=== PATIENT | female | born 1945 | race Caucasian/White ===

== ENCOUNTER 2024-05-06 10:42 | Inpatient (IN) ==
[2024-05-06] MEDS: ONDANSETRON INJ 2 MG/ML 2 ML VIAL IV STA (11:08)
[2024-05-06] MEDS: SODIUM CHLORIDE 0.9% 1,000 ML IV SCH (11:08)
--- NOTE | 2024-05-06 11:08 | Emergency Department Note ---
Impression & Plan Diverticulitis of intestine with perforation and abscess, Atrial fibrillation with RVR, Abdominal pain ED Provider Note NAME: ESTEBAN BARRIGA AGE: 78 SEX: F : 1945 ARRIVES VIA: Walk-In INFORMANT: Patient ED PROVIDER(S): Burak Erickson DO CHIEF COMPLAINT: hypotension and ABD pain HPI: Patient is a 78-year-old female with a past medical history of permanent A- fib, dilated cardiomyopathy and history of cardioversion who presents to the ER for low blood pressure referred in by her cardiology's office. At the end of March cardiology switched her to digoxin. She has been taking her blood thinner. She notes that on Friday she started with nausea, vomiting, and diarrhea. She is unable to keep anything down. Majority of the symptoms stopped by the end of Friday but she still had the nausea. Nausea has continued up until yesterday. She has not been eating or drinking much. She now just has discomfort in the left lower quadrant. She is unable to take her meds which included the digoxin. No dysuria, urgency, or frequency. No other exacerbating or remitting factors. ADDITIONAL HISTORY OBTAINED: Per HPI Chronic Medical/Social Conditions Affecting Care: Per HPI PAST MEDICAL HISTORY:See Below PAST SURGICAL HISTORY:See Below FAMILY HISTORY:See Below SOCIAL HISTORY:See Below HOME MEDICATIONS:See Below ALLERGIES:See Below VITALS:See Below PHYSICAL EXAMINATION: GENERAL: Sitting up in bed, alert, well appearing, well nourished, no distress, non-toxic EYE EXAM: normal conjunctiva. OROPHARYNX: mucous membranes are dry NECK: supple, no nuchal rigidity, no adenopathy, non-tender LUNGS: Clear to auscultation. Normal chest wall mechanics HEART: no murmurs, S1 normal and S2 normal ABDOMEN: abdomen soft, non-tender, normo-active bowel sounds, no masses, no rebound or guarding. UPPER EXTREMITIES: upper extremities are grossly normal. LOWER EXTREMITIES: No pitting edema. NEURO EXAM: Normal sensorium, cranial nerves II-XII grossly intact, normal speech, no gross weakness of arms, no gross weakness of legs. MEDICAL DECISION MAKING: Patient is a 78-year-old female who presents ER for the above-stated complaint. IV was established blood work was obtained. Labs show leukocytosis of 14,000. No significant anemia. BMP with a creatinine 1.2. LFTs bilirubin and mag were unremarkable. Troponin was negative. Lipase normal. Patient was given IV fluids. Heart rate trended down from 150 to 120s with 2L NSS. Systolic blood pressures improved. Patient was given IV antibiotics including Rocephin and Flagyl. She was updated bedside. Discussed with general surgery and the hospitalist admitted for further workup. Consults/Care Managements Discussions: Per [facility] Triage Nursing notes reviewed. Limited review of prior medical records performed Vital Signs: reviewed and remarkable for hypotension, tachycardic Differential diagnosis: Differential diagnoses includes but is not limited to gastritis, peptic ulcer disease, GERD, gallbladder disease, pancreatitis, small bowel obstruction, appendicitis, diverticulitis, hernia, urinary tract infection, torsion, perforation, trauma, infectious. ER treatment provided: See below Diagnostics interpreted by me include EKG and cardiac monitoring as listed below: -Cardiac Monitoring: An order was placed for continuous cardiac monitoring. The monitor shows a rate of 150 with A-fib rhythm. -ECG: A-fib RVR rate of 127 Normal axis No PVCs QTc 441 -Laboratory studies:Interpreted by me as stated above in MDM and shown below. Imaging studies: Xrays: As interpreted by me: Portable AP upright 1 view of the chest shows no infiltrate CTs show: CT abdomen pelvis shows perforated diverticulitis. Procedures:none Critical Care: None Past Med/Surg History Problem List (Updated 05/06/24 @ 15:21 by Burak Erickson DO) Abdominal pain (Acute) Atrial fibrillation with RVR (Acute) Diverticulitis of intestine with perforation and abscess (Acute) Permanent atrial fibrillation Mitral regurgitation Heart failure with mid-range ejection fraction (HFmEF) History of cardioversion 01/07/2018 10/13/2020 Dilated cardiomyopathy Essential (primary) hypertension Family History Father Heart disease Aortic valve stenosis Mother No problems noted. Social History Smoking Status: Former smoker Preferred Language: Qatari Feels Safe at Home: Yes Allergies Allergies Allergy/AdvReac Type Severity Reaction Status Date / Time amlodipine Allergy edema Verified 04/08/24 13:29 furosemide [From Lasix] Allergy Redness of Verified 04/08/24 13:29 Skin Penicillins Allergy Verified 04/08/24 13:29 Sulfa (Sulfonamide Allergy Verified 04/08/24 13:29 Antibiotics) Home Meds Home Medications Medication Instructions Recorded Confirmed candesartan 32 1 tab PO DAILY 08/13/23 05/06/24 mg-hydrochlorothiazide 12.5 mg tablet Previous Rx's Medication Instructions Recorded spironolactone 25 mg tablet 25 mg PO DAILY #90 tabs 08/21/23 rivaroxaban 10 mg tablet (Xarelto) 10 mg PO DAILY #90 tabs 12/19/23 digoxin 125 mcg (0.125 mg) tablet 125 mcg PO Q2D #45 tabs 04/08/24 metoprolol succinate 50 mg 100 mg (2 x 50 mg) PO DAILY #90 04/20/24 tablet,extended release 24 hr tabs Results & Data (ED) Vital Signs Vital Signs - 24 hr 05/06/24 10:48 05/06/24 11:05 05/06/24 11:10 Temperature 36.0 C L Temperature Source Temporal Artery Scan Pulse Rate 131 H 153 H Pulse Rate from SpO2 Sensor Respiratory Rate 20 22 Respiratory Effort / Characteristics Non-Labored Spontaneous Non-Labored Respiratory Depth Normal Normal Blood Pressure 82/57 L Blood Pressure Mean 65 Pulse Oximetry 96 97 Oxygen Delivery Method Room Air Room Air Sepsis Recent Fever Within 48 Hours No Sepsis New/Unexplained Change in Mental Status N/A Sepsis Action Taken by Nursing No Action Required 05/06/24 11:10 05/06/24 11:12 05/06/24 11:12 Temperature Temperature Source Pulse Rate Pulse Rate from SpO2 Sensor Respiratory Rate Respiratory Effort / Characteristics Respiratory Depth Blood Pressure 86/72 L 86/72 L Blood Pressure Mean 73 73 Pulse Oximetry 97 Oxygen Delivery Method Room Air Sepsis Recent Fever Within 48 Hours Sepsis New/Unexplained Change in Mental Status Sepsis Action Taken by Nursing 05/06/24 11:12 05/06/24 11:15 05/06/24 11:18 Temperature Temperature Source Pulse Rate 127 H 128 H Pulse Rate from SpO2 Sensor 141 H 126 H Respiratory Rate 18 14 Respiratory Effort / Characteristics Respiratory Depth Blood Pressure 86/72 L Blood Pressure Mean 73 Pulse Oximetry 95 97 Oxygen Delivery Method Sepsis Recent Fever Within 48 Hours Sepsis New/Unexplained Change in Mental Status Sepsis Action Taken by Nursing 05/06/24 11:19 05/06/24 11:19 05/06/24 11:19 Temperature Temperature Source Pulse Rate Pulse Rate from SpO2 Sensor Respiratory Rate Respiratory Effort / Characteristics Respiratory Depth Blood Pressure 101/84 101/84 101/84 Blood Pressure Mean 86 86 86 Pulse Oximetry Oxygen Delivery Method Sepsis Recent Fever Within 48 Hours Sepsis New/Unexplained Change in Mental Status Sepsis Action Taken by Nursing 05/06/24 11:21 05/06/24 11:36 05/06/24 11:45 Temperature Temperature Source Pulse Rate 124 H 120 H 125 H Pulse Rate from SpO2 Sensor 133 H 109 H 117 H Respiratory Rate 30 H 5 L 12 Respiratory Effort / Characteristics Respiratory Depth Blood Pressure Blood Pressure Mean Pulse Oximetry 98 97 96 Oxygen Delivery Method Sepsis Recent Fever Within 48 Hours Sepsis New/Unexplained Change in Mental Status Sepsis Action Taken by Nursing 05/06/24 11:45 05/06/24 11:45 Temperature Temperature Source Pulse Rate Pulse Rate from SpO2 Sensor Respiratory Rate Respiratory Effort / Characteristics Respiratory Depth Blood Pressure 120/82 120/82 Blood Pressure Mean 93 93 Pulse Oximetry Oxygen Delivery Method Sepsis Recent Fever Within 48 Hours Sepsis New/Unexplained Change in Mental Status Sepsis Action Taken by Nursing Laboratory Data 05/06/24 11:08 05/06/24 11:08 Lab Results 05/06/24 05/06/24 05/06/24 Range/Units 11:08 11:27 13:04 WBC 14.58 H (4.8-10.8) K/ul RBC 4.66 (4.20-5.40) M/uL Hgb 13.7 (12.0-16.0) g/dl POC Hgb 13.3 (12.0-16.0) g/dl Hct 43.0 (37.0-47.0) % POC Hct 39 (37-47) % MCV 92.3 (80.0-100.0) fL MCH 29.4 (25.0-34.0) pg MCHC 31.9 L (32.0-36.0) g/dL RDW Std Deviation 43.8 (36.4-46.3) fL RDW Coeff of Tyler 12.9 (11.5-14.5) % Plt Count 283 (130-400) K/uL MPV 13.2 H (9.4-12.4) fL Immature Gran % (Auto) 0.5 % Neut % (Auto) 82.3 % Lymph % (Auto) 8.5 % [place] % (Auto) 8.3 % Eos % (Auto) 0.1 % Baso % (Auto) 0.3 % Neut # (Auto) 11.99 H (1.40-6.50) K/uL Lymph # (Auto) 1.24 (1.20-3.40) K/uL [place] # (Auto) 1.21 H (0.11-0.59) K/uL Eos # (Auto) 0.02 (0.00-0.50) K/uL Baso # (Auto) 0.05 (0.00-0.20) K/uL Immature Gran # (Auto) 0.07 (0.01-0.20) K/uL POC Sodium 136 (135-144) mmol/L Sodium 135 L (136-145) mmol/L POC Potassium 4.1 (3.3-5.0) mmol/L Potassium 4.2 (3.5-5.1) mmol/L POC Chloride 102 (101-112) mmol/L Chloride 97 L (98-107) mmol/L Carbon Dioxide 23 (21-32) mmol/L POC Total CO2 23 L (24-31) mmol/L Anion Gap 15 H (3-11) POC Anion Gap 16.0 (16-25) mmol/L POC BUN 36 H (7-18) mg/dl BUN 33 H (6-23) mg/dl Creatinine 1.24 H (0.6-1.2) mg/dl POC Creatinine 1.4 H (0.6-1.3) mg/dl Est Cr Clr Drug Dosing 33.6 ml/min Est GFR ( Amer) 48.2 ml/min Est GFR (Non-Af Amer) 41.6 ml/min BUN/Creatinine Ratio 26.6 H (10-20) Glucose 95 (70-99(Fasting)) mg/dl POC Glucose (other) 97 (70-99) mg/dl Lactate 0.7 (0.4-2.0) mmol/L Calcium 10.2 (8.6-10.3) mg/dl POC Ioniz Calcium Chantelle 1.12 (1.12-1.32) mmol/l Magnesium 1.9 (1.7-2.4) mg/dl Total Bilirubin 1.0 (0.2-1.0) mg/dl AST 13 (13-39) U/L ALT 8 (7-52) U/L Alkaline Phosphatase 73 (34-104) U/L Troponin I High Sens 9.5 (0-14) pg/ml Total Protein 7.8 (6.0-8.3) gm/dl Albumin 4.2 (3.4-5.0) gm/dl Globulin 3.6 (2.5-4.0) gm/dl Albumin/Globulin Ratio 1.2 (0.9-2) Lipase 7 L (11-82) U/L Administered Medications Discontinued Medications Sodium Chloride (Nss) 1,000 mls @ 999 mls/hr IV .Q1H1M MIRYAM Stop: 05/06/24 13:15 Last Infusion: 05/06/24 14:30 Dose: Infused Documented By: Admin: 05/06/24 13:14 Dose: 999 mls/hr Documented By: Infusion: 05/06/24 12:13 Dose: Infused Documented By: Admin: 05/06/24 11:08 Dose: 999 mls/hr Documented By: LINNETTE Sodium Chloride (Nss) 1,000 mls @ 999 mls/hr IV .Q1H1M ONE Stop: 05/06/24 12:08 Last Infusion: 05/06/24 12:44 Dose: Infused Documented By: Admin: 05/06/24 11:43 Dose: 999 mls/hr Documented By: LINNETTE Ceftriaxone Sodium (Rocephin) 2,000 mg in 50 mls @ 100 mls/hr IV NOW STA Stop: 05/06/24 13:20 Last Infusion: 05/06/24 13:47 Dose: Infused Documented By: Admin: 05/06/24 13:16 Dose: 100 mls/hr Documented By: LINNETTE Metronidazole (Flagyl) 500 mg in 100 mls @ 100 mls/hr IV NOW STA; Protocol Stop: 05/06/24 13:50 Last Infusion: 05/06/24 14:30 Dose: Infused Documented By: Admin: 05/06/24 13:14 Dose: 100 mls/hr Documented By: LINNETTE Piperacillin Sod/Tazobactam Sod (Zosyn) 4.5 gm in 100 mls @ 200 mls/hr IV NOW STA Stop: 05/06/24 14:11 Last Admin: 05/06/24 14:26 Dose: 200 mls/hr Documented By: ANNE MARIE Ioversol (Optiray 320 100ml) 93 ml IV ONCE ONE Stop: 05/06/24 12:08 Last Admin: 05/06/24 12:08 Dose: 93 ml Documented By: STEVIE Ondansetron HCl (Ondansetron Inj 2 Mg/Ml 2 Ml Vial) 4 mg IV NOW STA Stop: 05/06/24 11:03 Last Admin: 05/06/24 11:08 Dose: 4 mg Documented By: LINNETTE Imaging Data Radiologist's Impression: Chest X-Ray 05/06/24 11:02 XR chest 1V portable HISTORY: Chest pain, nonspecific COMPARISON: None. FINDINGS: The lungs are clear. The heart is borderline enlarged. No pleural effusions. No pneumothorax. No acute fractures. Left axillary surgical clips are noted. IMPRESSION: No acute process. ACT 112: Negative or not required by law. Electronically signed by: Juan J Rosas M.D. 05/06/2024 11:36 AM Abdomen/Pelvis CT 05/06/24 11:04 CT OF THE ABDOMEN AND PELVIS WITH CONTRAST CLINICAL HISTORY: Left lower quadrant abdominal pain. COMPARISON STUDY: None. TECHNIQUE: Following IV administration of 93 mL of Optiray, axial images of the abdomen and pelvis were obtained from the lung bases to the proximal femurs. Images were reviewed in the axial, sagittal, and coronal planes. IV contrast was administered without complication. Automated exposure control was utilized for the study. A dose lowering technique was utilized adhering to the principles of ALARA. CT DOSE: 885.93 mGy.cm FINDINGS: No pneumatosis, free air or portal venous gas is present. Periportal edema may be related to hydration. Moderate left renal scarring is present. There is mild right renal scarring. There is no hydronephrosis. A 1.6 cm left adrenal nodule is present. Although indeterminate, this is statistically benign. There is no evidence for a bowel obstruction. Colonic diverticulosis is noted. There is extensive inflammation within the pelvis. This is due to sigmoid diverticulitis with contained perforation involving the mid sigmoid colon on image 262 of 349. There is an associated 2.1 x 1.7 cm gas and fluid containing collection consistent with a diverticular abscess. Sigmoid colon wall thickening is noted. There are multiple pockets of partially loculated fluid within the pelvis, including a central pelvic fluid collection on image 252 that measures 5.2 x 2.3 cm. A left pelvic sidewall collection measures 3.2 x 1.2 cm. There is a tiny collection along the right posterior aspect of the uterus which measures 2.9 x 1 cm. Inflammation extends into the adnexa. The vasculature is patent. IMPRESSION: Findings consistent with acute sigmoid diverticulitis with contained perforation and an associated 2.1 x 1.7 cm diverticular abscess. Extensive colonic wall thickening with extensive pelvic inflammation with peritoneal enhancement. Several additional small partially loculated fluid collections which may reflect additional developing abscesses. No drainable fluid collections. ACT 112: Negative or not required by law. Electronically signed by: Miah Watson M.D. 05/06/2024 12:47 PM Discharge Plan Visit Data Chief Complaint: Illness Stated Complaint: NAUSEA, VOMITING, DIARRHEA, LOW BP, DIZZINESS ED Provider: Burak Erickson Discharge Problem: Diverticulitis of intestine with perforation and abscess, Atrial fibrillation with RVR, Abdominal pain Forms Stand Alone Forms: [facility] [employer] Prescriptions Prescriptions: No Action Xarelto 10 mg tablet 10 mg PO DAILY Qty: 90 2RF Rx Instructions: for 35 days digoxin 125 mcg (0.125 mg) tablet 125 mcg PO Q2D Qty: 45 3RF metoprolol succinate 50 mg tablet extended release 24 hr 100 mg PO DAILY Qty: 90 3RF spironolactone 25 mg tablet 25 mg PO DAILY Qty: 90 3RF candesartan-hydrochlorothiazid 32-12.5 mg tablet 1 tab PO DAILY Referrals Referrals: PCP,NO [Physician] - Discharge Problem: Diverticulitis of intestine with perforation and abscess Qualifiers: Diverticulitis site: large intestine Diverticulitis bleeding: unspecified bleeding status Qualified Code(s): K57.20 - Diverticulitis of large intestine with perforation and abscess without bleeding
[2024-05-06 11:32] LABS: Basophils # (auto) 0.05 K/uL (0.00-0.20); Basophils % (auto) 0.3 %; Eosinophils # (auto) 0.02 K/uL (0.00-0.50); Eosinophils % (auto) 0.1 %; Hemoglobin 13.7 g/dl (12.0-16.0); Immature Granulocytes # (auto) 0.07 K/uL (0.01-0.20); Immature Granulocytes % (auto) 0.5 %; Lymphocytes # (auto) 1.24 K/uL (1.20-3.40); Lymphocytes % (auto) 8.5 %; Mean Corpuscular Hemoglobin 29.4 pg (25.0-34.0); Mean Corpuscular Hgb Conc 31.9 g/dL (32.0-36.0); Mean Corpuscular Volume 92.3 fL (80.0-100.0); Mean Platelet Volume 13.2 fL (9.4-12.4); Monocytes # (auto) 1.21 K/uL (0.11-0.59); Monocytes % (auto) 8.3 %; Neutrophils # (auto) 11.99 K/uL (1.40-6.50); Neutrophils % (auto) 82.3 %; Platelet Count 283 K/uL (130-400); RDW Coefficient of Variation 12.9 % (11.5-14.5); RDW Standard Deviation 43.8 fL (36.4-46.3); Red Blood Count 4.66 M/uL (4.20-5.40); White Blood Count 14.58 K/ul (4.8-10.8)
--- NOTE | 2024-05-06 11:37 | XRay Report ---
XR chest 1V portable HISTORY: Chest pain, nonspecific COMPARISON: None. FINDINGS: The lungs are clear. The heart is borderline enlarged. No pleural effusions. No pneumothora x. No acute fractures. Left axillary surgical clips are noted. IMPRESSION: No acute process. ACT 112: Negative or not required by law. Electronically signed by: Juan J Rosas M.D. 05/06/2024 11:36 AM
[2024-05-06 11:39] LABS: iSTAT Creatinine 1.4 mg/dl (0.6-1.3); iSTAT Hemoglobin 13.3 g/dl (12.0-16.0); iSTAT Ionized Calcium 1.12 mmol/l (1.12-1.32); iSTAT Potassium 4.1 mmol/L (3.3-5.0)
[2024-05-06] MEDS: SODIUM CHLORIDE 0.9% 1,000 ML IV ONE (11:43)
[2024-05-06 11:59] LABS: Albumin Level 4.2 gm/dl (3.4-5.0); Calcium 10.2 mg/dl (8.6-10.3); Potassium 4.2 mmol/L (3.5-5.1)
[2024-05-06 12:05] LABS: Albumin Globulin Ratio 1.2 (0.9-2); BUN Creatinine Ratio 26.6 (10-20); Creatinine Clr Calc Pharmacy 33.6 ml/min; Est GFR (African American) 48.2 ml/min; Est GFR (Non-African American) 41.6 ml/min; Globulin 3.6 gm/dl (2.5-4.0); Total Protein 7.8 gm/dl (6.0-8.3)
[2024-05-06 12:07] LABS: Troponin I High Sensitivity 9.5 pg/ml (0-14)
[2024-05-06] MEDS: OPTIRAY 320 100ml IV ONE (12:08)
--- NOTE | 2024-05-06 12:49 | CT Scan Report ---
CT OF THE ABDOMEN AND PELVIS WITH CONTRAST CLINICAL HISTORY: Left lower quadrant abdominal pain. COMPARISON STUDY: None. TECHNIQUE: Following IV administration of 93 mL of Optiray, axial images of the abdomen and pelvis we re obtained from the lung bases to the proximal femurs. Images were reviewed in the axial, sagittal, and coronal planes. IV contrast was administered without complication. Automated exposure control wa s utilized for the study. A dose lowering technique was utilized adhering to the principles of ALARA . CT DOSE: 885.93 mGy.cm FINDINGS: No pneumatosis, free air or portal venous gas is present. Periportal edema may be related t o hydration. Moderate left renal scarring is present. There is mild right renal scarring. There is no hydronephrosis. A 1.6 cm left adrenal nodule is present. Although indeterminate, this is statistical ly benign. There is no evidence for a bowel obstruction. Colonic diverticulosis is noted. There is ex tensive inflammation within the pelvis. This is due to sigmoid diverticulitis with contained perforat ion involving the mid sigmoid colon on image 262 of 349. There is an associated 2.1 x 1.7 cm gas and fluid containing collection consistent with a diverticular abscess. Sigmoid colon wall thickening is noted. There are multiple pockets of partially loculated fluid within the pelvis, including a central pelvic fluid collection on image 252 that measures 5.2 x 2.3 cm. A left pelvic sidewall collection m easures 3.2 x 1.2 cm. There is a tiny collection along the right posterior aspect of the uterus which measures 2.9 x 1 cm. Inflammation extends into the adnexa. The vasculature is patent. IMPRESSION: Findings consistent with acute sigmoid diverticulitis with contained perforation and an associated 2.1 x 1.7 cm diverticular abscess. Extensive colonic wall thickening with extensive pelvic inflammation with peritoneal enhancement. Several additional small partially loculated fluid collect ions which may reflect additional developing abscesses. No drainable fluid collections. ACT 112: Negative or not required by law. Electronically signed by: Miah Watson M.D. 05/06/2024 12:47 PM
[2024-05-06] MEDS: metroNIDAZOLE 500 MG/100 ML BAG IV STA (13:14)
[2024-05-06] MEDS: cefTRIAXone SODIUM 2,000 MG/50 ML BAG IV STA (13:16)
--- NOTE | 2024-05-06 13:20 | History & Physical Report ---
Date of Service May 06, 2024 Assessment & Plan (1) Diverticulitis of intestine with perforation and abscess: Plan: Diverticulitis - Acute sigmoid diverticulitis with 2.1 x 1.7 cm abscess, extensive colonic wall thickening, extensive pelvic inflammation with peritoneal enhancement, several partially loculated small fluid collections potentially reflective of developing abscess. No drainable fluid collection is noted. Leukocytosis of 14.5 Patient placed on Rocephin/Flagyl while in the ER. She is penicillin allergic. No prior history of immune compromise/bowel disease/immunosuppressants Surgery consulted. Recommend medical admission, neurosurgical intervention indicated at this time. Given increased risk infection with perforation and abscess will expand coverage from Rocephin/Flagyl. Patient has a distant history of a rash as a small child to penicillin but does not think she has had any other reactions or penicillin based antibiotics since then. Discussed of Zosyn versus class switch/carbapenem. Patient agreeable to trialing Zosyn. Will monitor closely for allergy. Reviewed with pharmacy. Zosyn continued every 8 hours Multimodal IV pain control, nausea control ordered (2) Permanent atrial fibrillation: Plan: With tachycardia in the setting of acute infection, and has been off metoprolol for 2 days due to nausea/vomiting Had recently been switched from amiodarone to metoprolol, then had adjunct digoxin added last week per patient. Up titration of metoprolol was deferred due to relatively normal blood pressure with resistant tachycardia. Anticoagulation switched to heparin gtt. which may be paused prior to any surgical procedures or reversed if needed. Patient is elevated [id number] high risk 5 points Metoprolol switched to scheduled IV Digoxin level pending, initially patient thought her nausea/vomiting was due to toxicity as she recently started this. Will hold doses at this time, can add/convert to IV if needed and inadequate rate control with metoprolol (3) Heart failure with mid-range ejection fraction (HFmEF): Plan: No chest pain, chest pressure or acute volume overload at time of admission. History of dilated cardiomyopathy EF 45%, denies anginal symptoms Follow clinically, discontinue fluids if evidence of volume overload developing. Lungs are clear on admission, no JVD Troponin normal, afib on admit Admitted to PCU (4) Essential (primary) hypertension: Plan: Oral antihypertensives temporarily held, metoprolol IV as noted Plan DVT prophylaxis: Heparin GTT for A-fib CODE STATUS: Full code Disposition: PCU Diet: N.p.o. History of Present Illness Primary Care Provider: DO Mabel Manuel Sherita is a 78-year-old female with past medical history of A-fib on anticoagulation, dilated cardiomyopathy, hypertension who presents to the ER with nausea/vomiting/diarrhea and left lower quadrant pain and inability to tolerate her oral meds including digoxin. CTA/P shows acute diverticulitis with contained perforation and 2.1 x 1.7 cm abscess. Extensive colonic wall thickening, and several small partially loculated fluid collections consistent with developing abscesses were seen. Progressive abdominal pain since Friday, ~4 days. Mostly in her left lower quadrant. No prior history of diverticulitis. No fevers, chills in the last week. No respiratory symptoms. Due to nausea, vomiting, and stomach discomfort has not taking any medications since Friday. Had recently started on digoxin and stopped as was concerned her sx were a side effect Eliquis twice a day x8 years. No bleeding problems. Last dose was Friday Last dose of metorpolol and BP meds also . Was previously on amiodarone, was switched to metoprolol in March 17, then had digoxin added later. NO chest pain +1x loose BM overnight normally, had had several episodes of diarrhea last Friday. Liquid and oozing quality which is abnormal for her. No blood/melena. Drinking water, no food in the last 2 days Peeing normally last day or so. No pain Medical History: Reviewed Medications: Reviewed Surgical History: Reviewed Family history: Reviewed Allergies: Reviewed. Childhood penicillin. Social History: No hx tobacco use. Rare social etoh use Code Status: Full Code Allergies Allergy/AdvReac Type Severity Reaction Status Date / Time amlodipine Allergy edema Verified 04/08/24 13:29 furosemide [From Lasix] Allergy Redness of Verified 04/08/24 13:29 Skin Penicillins Allergy Verified 04/08/24 13:29 Sulfa (Sulfonamide Allergy Verified 04/08/24 13:29 Antibiotics) Home Medications Medication Instructions Recorded Confirmed Type candesartan 32 1 tab PO DAILY 08/13/23 05/06/24 History mg-hydrochlorothiazide 12.5 mg tablet spironolactone 25 mg tablet 25 mg PO DAILY #90 tabs 08/21/23 05/06/24 Rx rivaroxaban 10 mg tablet (Xarelto) 10 mg PO DAILY #90 tabs 12/19/23 05/06/24 Rx digoxin 125 mcg (0.125 mg) tablet 125 mcg PO Q2D #45 tabs 04/08/24 05/06/24 Rx metoprolol succinate 50 mg 100 mg (2 x 50 mg) PO DAILY #90 04/20/24 05/06/24 Rx tablet,extended release 24 hr tabs Past Med/Surg History Problem List (Updated 05/06/24 @ 13:53 by Lulu Cortes PA-C) Diverticulitis of intestine with perforation and abscess Permanent atrial fibrillation Mitral regurgitation Heart failure with mid-range ejection fraction (HFmEF) History of cardioversion 01/07/2018 10/13/2020 Dilated cardiomyopathy Essential (primary) hypertension Family History Father Heart disease Aortic valve stenosis Mother No problems noted. Social History Smoking Status: Former smoker Preferred Language: Wolof Feels Safe at Home: Yes Physical Exam Physical Exam: General: A&Ox3. NAD. Cooperative. HEENT: Atraumatic, normocephalic. PERLAA Pulm: CTAB A&P. -wheezes, -rales, -rhonchi. Symmetrical chest rise. No increased work of breathing. No respiratory distress. Cardiac: tachycardic, irir. Radial pulses intact and symmetrical. Abdominal: +LLQ TTP without rebound/guarding/rigidity. BS intact but diminished Ext: moves all extremities equally Results & Data Results & Data Vital Signs (Past 12 Hours) Vital Signs Temp Pulse Resp BP Pulse Ox O2 Del Method 05/06/24 11:45 120/82 05/06/24 11:45 120/82 05/06/24 11:45 125 H 12 96 05/06/24 11:36 120 H 5 L 97 05/06/24 11:21 124 H 30 H 98 05/06/24 11:19 101/84 05/06/24 11:19 101/84 05/06/24 11:19 101/84 05/06/24 11:18 128 H 14 97 05/06/24 11:15 127 H 18 95 05/06/24 11:12 86/72 L 05/06/24 11:12 86/72 L 05/06/24 11:12 86/72 L 05/06/24 11:10 97 Room Air 05/06/24 11:10 22 97 Room Air 05/06/24 11:05 153 H 05/06/24 10:48 36.0 C L 131 H 20 82/57 L 96 Room Air PG Care Time/CCT Total # of Minutes Spent Total Time Spent with Patient: Total time spent is greater than 50% in coordination of care (as documented) at patient's floor/unit and/or counseling patient: Coding Level of Care Code 55622 INT INP/OBS CARE MIN Diagnoses Diverticulitis of intestine with perforation and abscess K57.80 Permanent atrial fibrillation I48.21 Heart failure with mid-range ejection fraction (HFmEF) I50.22 Essential (primary) hypertension I10
--- NOTE | 2024-05-06 13:58 | Surgery Consultation ---
Date of Consultation May 06, 2024 Assessment & Plan (1) Diverticulitis of intestine with perforation and abscess: (2) Permanent atrial fibrillation: Plan 78 year-old female with 4 day history of intermittent cramping but not improving abdominal pain with nausea, vomiting, and diarrhea. CT scan with diverticulitis of sigmoid colon with microperforation and abscess measuring 2.1 x 1.7 cm with additional pelvic fluid collections concerning for developing abscesses however unamenable for IR drainage. Leukocytosis of 14k, afebrile, vss , abdomen is soft with mild tenderness in the left lower abdomen. Plan: Discussed with patient her CT scan results. Had long discussion about treatment options including conservative management , IR drainage if amenable, and need for surgery if unstable. Fortunately she is stable with only mild tenderness on examination. No acute surgical intervention required. Recommend conservative management with IV antibiotics , IV fluids, NPO for bowel rest today, pain management as needed, and antiemetics as needed. Discussed with Dr. Mcwilliams, will try Zosyn given the complicated diverticulitis will follow along Discussed with Dr. Page who agrees with above. History of Present Illness Reason for Consultation: Diverticulitis with abscess Requesting Physician: Dr. Erickson Attending Physician: Dr. Erickson History of Present Illness Mabel is a very pleasant 78 year-old female with history of afib on xarelto, history of cardioversion x 4, mitral regurgitation, HTN who presented to ED with persistent, not improving lower abdominal pain that started Friday morning with nausea, vomiting, and diarrhea. States pain was severe at times and then would improve. Intermittent cramping pain however was not improving. She thought it was secondary to the new cardiac medication she was just recently prescribed. Denies of any fever, chills, sweats, chest pain, shortness of breath, blood in stools, black/tarry stools, difficulty urinating, or blood in urine. No prior history of diverticulitis. Colonoscopy + 10 years ago. Currently rating abdominal pain minimal at this time. Has not had any pain medication in ed. Allergies Allergy/AdvReac Type Severity Reaction Status Date / Time amlodipine Allergy edema Verified 04/08/24 13:29 furosemide [From Lasix] Allergy Redness of Verified 04/08/24 13:29 Skin Penicillins Allergy Verified 04/08/24 13:29 Sulfa (Sulfonamide Allergy Verified 04/08/24 13:29 Antibiotics) Home Medications Medication Instructions Recorded Confirmed Type candesartan 32 1 tab PO DAILY 08/13/23 05/06/24 History mg-hydrochlorothiazide 12.5 mg tablet spironolactone 25 mg tablet 25 mg PO DAILY #90 tabs 08/21/23 05/06/24 Rx rivaroxaban 10 mg tablet (Xarelto) 10 mg PO DAILY #90 tabs 12/19/23 05/06/24 Rx digoxin 125 mcg (0.125 mg) tablet 125 mcg PO Q2D #45 tabs 04/08/24 05/06/24 Rx metoprolol succinate 50 mg 100 mg (2 x 50 mg) PO DAILY #90 04/20/24 05/06/24 Rx tablet,extended release 24 hr tabs Patient History Family History Father Heart disease Aortic valve stenosis Mother No problems noted. Social History Smoking Status: Former smoker Preferred Language: Burmese Feels Safe at Home: Yes Review of Systems Review of Systems: All systems reviewed & are unremarkable except as noted in HPI & below Physical Exam Constitutional: WD/WN, vitals as above cooperative and comfortable; no acute distress and not ill appearing Respiratory: normal respiratory effort, lungs clear to auscultation Cardiovascular: Rate/Rhythm: + irregularly irregular Heart Sounds: normal S1 and normal S2 Gastrointestinal (Abdomen): Inspection/Auscultation: abdomen normal to inspection; abdomen not distended Percussion/Palpation: + abdomen tender (LLQ) and + abdomen firm; no guarding, abdomen not rigid and + abdomen not soft Skin: no rashes, warm and dry Psychiatric: A+Ox3, euthymic affect Results & Data Vital Signs (Past 12 Hours) Vital Signs Temp Pulse Resp BP Pulse Ox O2 Del Method 05/06/24 11:45 120/82 05/06/24 11:45 120/82 05/06/24 11:45 125 H 12 96 05/06/24 11:36 120 H 5 L 97 05/06/24 11:21 124 H 30 H 98 05/06/24 11:19 101/84 05/06/24 11:19 10105/06/24 11:19 101/84 05/06/24 11:18 128 H 14 97 05/06/24 11:15 127 H 18 95 05/06/24 11:12 86/72 L 05/06/24 11:12 86/72 L 05/06/24 11:12 86/72 L 05/06/24 11:10 97 Room Air 05/06/24 11:10 22 97 Room Air 05/06/24 11:05 153 H 05/06/24 10:48 36.0 C L 131 H 20 82/57 L 96 Room Air Laboratory Results 05/06/24 05/06/24 05/06/24 Range/Units 13:04 11:27 11:08 WBC 14.58 H (4.8-10.8) K/ul RBC 4.66 (4.20-5.40) M/uL Hgb 13.7 (12.0-16.0) g/dl POC Hgb 13.3 (12.0-16.0) g/dl Hct 43.0 (37.0-47.0) % POC Hct 39 (37-47) % MCV 92.3 (80.0-100.0) fL MCH 29.4 (25.0-34.0) pg MCHC 31.9 L (32.0-36.0) g/dL RDW Std Deviation 43.8 (36.4-46.3) fL RDW Coeff of [place] 12.9 (11.5-14.5) % Plt Count 283 (130-400) K/uL MPV 13.2 H (9.4-12.4) fL Immature Gran % (Auto) 0.5 % Neut % (Auto) 82.3 % Lymph % (Auto) 8.5 % [place] % (Auto) 8.3 % Eos % (Auto) 0.1 % Baso % (Auto) 0.3 % Neut # (Auto) 11.99 H (1.40-6.50) K/uL Lymph # (Auto) 1.24 (1.20-3.40) K/uL [place] # (Auto) 1.21 H (0.11-0.59) K/uL Eos # (Auto) 0.02 (0.00-0.50) K/uL Baso # (Auto) 0.05 (0.00-0.20) K/uL Immature Gran # (Auto) 0.07 (0.01-0.20) K/uL POC Sodium 136 (135-144) mmol/L Sodium 135 L (136-145) mmol/L POC Potassium 4.1 (3.3-5.0) mmol/L Potassium 4.2 (3.5-5.1) mmol/L POC Chloride 102 (101-112) mmol/L Chloride 97 L (98-107) mmol/L Carbon Dioxide 23 (21-32) mmol/L POC Total CO2 23 L (24-31) mmol/L Anion Gap 15 H (3-11) POC Anion Gap 16.0 (16-25) mmol/L POC BUN 36 H (7-18) mg/dl BUN 33 H (6-23) mg/dl Creatinine 1.24 H (0.6-1.2) mg/dl POC Creatinine 1.4 H (0.6-1.3) mg/dl Est Cr Clr Drug Dosing 33.6 ml/min Est GFR ( Amer) 48.2 ml/min Est GFR (Non-Af Amer) 41.6 ml/min BUN/Creatinine Ratio 26.6 H (10-20) Glucose 95 (70-99(Fasting)) mg/dl POC Glucose (other) 97 (70-99) mg/dl Lactate 0.7 (0.4-2.0) mmol/L Calcium 10.2 (8.6-10.3) mg/dl POC Ioniz Calcium Chantelle 1.12 (1.12-1.32) mmol/l Total Bilirubin 1.0 (0.2-1.0) mg/dl AST 13 (13-39) U/L ALT 8 (7-52) U/L Alkaline Phosphatase 73 (34-104) U/L Troponin I High Sens 9.5 (0-14) pg/ml Total Protein 7.8 (6.0-8.3) gm/dl Albumin 4.2 (3.4-5.0) gm/dl Globulin 3.6 (2.5-4.0) gm/dl Albumin/Globulin Ratio 1.2 (0.9-2) Lipase 7 L (11-82) U/L Diagnostic Findings CT OF THE ABDOMEN AND PELVIS WITH CONTRAST CLINICAL HISTORY: Left lower quadrant abdominal pain. COMPARISON STUDY: None. TECHNIQUE: Following IV administration of 93 mL of Optiray, axial images of the abdomen and pelvis were obtained from the lung bases to the proximal femurs. Images were reviewed in the axial, sagittal, and coronal planes. IV contrast was administered without complication. Automated exposure control was utilized for the study. A dose lowering technique was utilized adhering to the principles of ALARA. CT DOSE: 885.93 mGy.cm FINDINGS: No pneumatosis, free air or portal venous gas is present. Periportal edema may be related to hydration. Moderate left renal scarring is present. There is mild right renal scarring. There is no hydronephrosis. A 1.6 cm left adrenal nodule is present. Although indeterminate, this is statistically benign. There is no evidence for a bowel obstruction. Colonic diverticulosis is noted. There is extensive inflammation within the pelvis. This is due to sigmoid diverticulitis with contained perforation involving the mid sigmoid colon on image 262 of [id number]. There is an associated 2.1 x 1.7 cm gas and fluid containing collection consistent with a diverticular abscess. Sigmoid colon wall thickening is noted. There are multiple pockets of partially loculated fluid within the pelvis, including a central pelvic fluid collection on image 252 that measures 5.2 x 2.3 cm. A left pelvic sidewall collection measures 3.2 x 1.2 cm. There is a tiny collection along the right posterior aspect of the uterus which measures 2.9 x 1 cm. Inflammation extends into the adnexa. The vasculature is patent. IMPRESSION: Findings consistent with acute sigmoid diverticulitis with contained perforation and an associated 2.1 x 1.7 cm diverticular abscess. Extensive colonic wall thickening with extensive pelvic inflammation with per itoneal enhancement. Several additional small partially loculated fluid collections which may reflect additional developing abscesses. No drainable fluid collections.
[2024-05-06] MEDS: PIPERACILLIN/TAZOBACTAM 4.5 GM/100 ML BAG IV STA (14:26)
[2024-05-06 14:56] LABS: Magnesium 1.9 mg/dl (1.7-2.4)
[2024-05-06] MEDS: Heparin IV Adult Wt-Based Low-Dose *NO* INITIAL Bolus Protocol IV STA (15:14)
[2024-05-06] MEDS: HEPARIN SODIUM/DEXTROSE 25,000 UNITS/500 ML BAG IV SCH (15:15)
[2024-05-06] MEDS: LACTATED RINGER'S 1,000 ML IV SCH (15:19)
[2024-05-06] MEDS: METOPROLOL TARTRATE 1 MG/ML VIAL IV STA (15:19)
[2024-05-06] MEDS: METOPROLOL TARTRATE 1 MG/ML VIAL IV SCH (18:00)
[2024-05-06] MEDS: PIPERACILLIN/TAZOBACTAM 4.5 GM/100 ML BAG IV SCH (20:30)
[2024-05-06 21:25] LABS: ANTI-Xa, UFH(UnfractionatedHep 1.13 IU/ml (0.3-0.7)
[2024-05-06 22:55] LABS: ANTI-Xa, UFH(UnfractionatedHep 0.73 IU/ml (0.3-0.7)
[2024-05-07 00:09] LABS: ANTI-Xa, UFH(UnfractionatedHep 0.64 IU/ml (0.3-0.7)
[2024-05-07 04:26] LABS: Basophils # (auto) 0.02 K/uL (0.00-0.20); Basophils % (auto) 0.3 %; Eosinophils # (auto) 0.02 K/uL (0.00-0.50); Eosinophils % (auto) 0.3 %; Hematocrit (blood only) 33.5 % (37.0-47.0); Hemoglobin 10.9 g/dl (12.0-16.0); Immature Granulocytes # (auto) 0.01 K/uL (0.01-0.20); Immature Granulocytes % (auto) 0.1 %; Lymphocytes # (auto) 0.86 K/uL (1.20-3.40); Lymphocytes % (auto) 11.3 %; Mean Corpuscular Hemoglobin 29.6 pg (25.0-34.0); Mean Corpuscular Hgb Conc 32.5 g/dL (32.0-36.0); Mean Platelet Volume 12.7 fL (9.4-12.4); Monocytes # (auto) 0.72 K/uL (0.11-0.59); Monocytes % (auto) 9.5 %; Neutrophils # (auto) 5.97 K/uL (1.40-6.50); Neutrophils % (auto) 78.5 %; Platelet Count 218 K/uL (130-400); RDW Coefficient of Variation 12.9 % (11.5-14.5); RDW Standard Deviation 43.2 fL (36.4-46.3); Red Blood Count 3.68 M/uL (4.20-5.40)
[2024-05-07 04:41] LABS: BUN Creatinine Ratio 26.4 (10-20); Calcium 8.7 mg/dl (8.6-10.3); Creatinine Clr Calc Pharmacy 52.9 ml/min; Est GFR (Non-African American) 60.4 ml/min; Magnesium 1.8 mg/dl (1.7-2.4)
[2024-05-07 07:25] LABS: ANTI-Xa, UFH(UnfractionatedHep 0.43 IU/ml (0.3-0.7)
[2024-05-07] MEDS ORDERED: MoRPHine SULFATE 2 MG/ML CARP IV PRN (07:52)
[2024-05-07] MEDS ORDERED: ACETAMINOPHEN 1,000 MG/100 ML VIAL IV PRN (07:52)
[2024-05-07] MEDS: METOPROLOL TARTRATE 1 MG/ML VIAL IV STA (08:04)
[2024-05-07] MEDS: MAGNESIUM SULFATE / D5W 1 GM/100 ML BAG IV ONE (08:07)
[2024-05-07] MEDS ORDERED: METOPROLOL SUCC 50MG EXT REL TAB PO SCH (09:00)
--- NOTE | 2024-05-07 09:15 | Surgery Progress Note ---
Date of Service May 07, 2024 Assessment & Plan (1) Diverticulitis of intestine with perforation and abscess: (2) Permanent atrial fibrillation: Plan 78 year-old female with 4 day history of intermittent cramping but not improving abdominal pain with nausea, vomiting, and diarrhea. CT scan with diverticulitis of sigmoid colon with microperforation and abscess measuring 2.1 x 1.7 cm with additional pelvic fluid collections concerning for developing abscesses however unamenable for IR drainage. 05/07/2024: avss abdominal pain in LLQ resolved, just some cramping discomfort no n,v abdomen benign Plan: No acute surgical intervention required. Recommend conservative management with IV antibiotics , IV fluids, pain management as needed, and antiemetics as needed. Doing well with Zosyn, no allergic reaction Okay for clear liquids continue medical management although she is feeling good, I would recommend at least 3 days of IV abx given multiple abscesses. Discussed with Dr. Page who agrees with above. Admission and Anticipated Discharge Date Admission Date: May 06, 2024 Subjective feeling good abdominal pain gone just cramping discomfort no n,v no flatus or bowel movement no chest pain or shortness of breath no fevers, chills, or sweats Physical Exam Constitutional: WD/WN, vitals as above cooperative and comfortable; no acute distress and not ill appearing Respiratory: normal respiratory effort, lungs clear to auscultation Cardiovascular: Rate/Rhythm: + irregularly irregular Heart Sounds: normal S1 and normal S2 Gastrointestinal (Abdomen): Inspection/Auscultation: abdomen normal to inspection; abdomen not distended Percussion/Palpation: abdomen soft; abdomen nontender, no guarding, abdomen not rigid and abdomen not firm Skin: no rashes, warm and dry Psychiatric: A+Ox3, euthymic affect Results & Data Vital Signs (Past 12 Hours) Vital Signs Temp Pulse Pulse Resp BP BP Pulse Ox 05/07/24 08:48 111 H 110/79 05/07/24 08:00 36.9 C 107 H 18 113/69 96 05/07/24 06:20 111 H 114/68 05/07/24 06:05 123 H 114/68 05/07/24 04:00 36.9 C 121 H 18 129/71 98 05/06/24 23:34 118 H 104/61 05/06/24 23:19 138 H 124/89 05/06/24 22:12 36.9 C 131 H 18 112/71 98 O2 Del Method 05/07/24 08:48 05/07/24 08:00 Room Air 05/07/24 06:20 05/07/24 06:05 05/07/24 04:00 Room Air 05/06/24 23:34 05/06/24 23:19 05/06/24 22:12 Room Air Laboratory Results 05/07/24 05/07/24 05/06/24 Range/Units 06:52 03:59 23:32 WBC 7.60 (4.8-10.8) K/ul RBC 3.68 L (4.20-5.40) M/uL Hgb 10.9 L (12.0-16.0) g/dl POC Hgb (12.0-16.0) g/dl Hct 33.5 L (37.0-47.0) % POC Hct (37-47) % MCV 91.0 (80.0-100.0) fL MCH 29.6 (25.0-34.0) pg MCHC 32.5 (32.0-36.0) g/dL RDW Std Deviation 43.2 (36.4-46.3) fL RDW Coeff of Tyler 12.9 (11.5-14.5) % Plt Count 218 (130-400) K/uL MPV 12.7 H (9.4-12.4) fL Immature Gran % (Auto) 0.1 % Neut % (Auto) 78.5 % Lymph % (Auto) 11.3 % [place] % (Auto) 9.5 % Eos % (Auto) 0.3 % Baso % (Auto) 0.3 % Neut # (Auto) 5.97 (1.40-6.50) K/uL Lymph # (Auto) 0.86 L (1.20-3.40) K/uL [place] # (Auto) 0.72 H (0.11-0.59) K/uL Eos # (Auto) 0.02 (0.00-0.50) K/uL Baso # (Auto) 0.02 (0.00-0.20) K/uL Immature Gran # (Auto) 0.01 (0.01-0.20) K/uL Heparin Anti-Xa, Unfract 0.43 0.64 (0.3-0.7) IU/ml POC Sodium (135-144) mmol/L Sodium 136 (136-145) mmol/L POC Potassium (3.3-5.0) mmol/L Potassium 4.0 (3.5-5.1) mmol/L POC Chloride (101-112) mmol/L Chloride 105 (98-107) mmol/L Carbon Dioxide 24 (21-32) mmol/L POC Total CO2 (24-31) mmol/L Anion Gap 7 (3-11) POC Anion Gap (16-25) mmol/L POC BUN (7-18) mg/dl BUN 24 H (6-23) mg/dl Creatinine 0.91 D (0.6-1.2) mg/dl POC Creatinine (0.6-1.3) mg/dl Est Cr Clr Drug Dosing 52.9 ml/min Est GFR ( Amer) 70.0 ml/min Est GFR (Non-Af Amer) 60.4 ml/min BUN/Creatinine Ratio 26.4 H (10-20) Glucose 97 (70-99(Fasting)) mg/dl POC Glucose (other) (70-99) mg/dl Lactate (0.4-2.0) mmol/L Calcium 8.7 (8.6-10.3) mg/dl POC Ioniz Calcium Chantelle (1.12-1.32) mmol/l Magnesium 1.8 (1.7-2.4) mg/dl Total Bilirubin (0.2-1.0) mg/dl AST (13-39) U/L ALT (7-52) U/L Alkaline Phosphatase (34-104) U/L Troponin I High Sens (0-14) pg/ml Total Protein (6.0-8.3) gm/dl Albumin (3.4-5.0) gm/dl Globulin (2.5-4.0) gm/dl Albumin/Globulin Ratio (0.9-2) Lipase (11-82) U/L Digoxin (0.8-2.0) ng/ml 05/06/24 05/06/24 05/06/24 Range/Units 21:52 20:46 14:58 WBC (4.8-10.8) K/ul RBC (4.20-5.40) M/uL Hgb (12.0-16.0) g/dl POC Hgb (12.0-16.0) g/dl Hct (37.0-47.0) % POC Hct (37-47) % MCV (80.0-100.0) fL MCH (25.0-34.0) pg MCHC (32.0-36.0) g/dL RDW Std Deviation (36.4-46.3) fL RDW Coeff of Tyler (11.5-14.5) % Plt Count (130-400) K/uL MPV (9.4-12.4) fL Immature Gran % (Auto) % Neut % (Auto) % Lymph % (Auto) % [place] % (Auto) % Eos % (Auto) % Baso % (Auto) % Neut # (Auto) (1.40-6.50) K/uL Lymph # (Auto) (1.20-3.40) K/uL [place] # (Auto) (0.11-0.59) K/uL Eos # (Auto) (0.00-0.50) K/uL Baso # (Auto) (0.00-0.20) K/uL Immature Gran # (Auto) (0.01-0.20) K/uL Heparin Anti-Xa, Unfract 0.73 H* 1.13 H* (0.3-0.7) IU/ml POC Sodium (135-144) mmol/L Sodium (136-145) mmol/L POC Potassium (3.3-5.0) mmol/L Potassium (3.5-5.1) mmol/L POC Chloride (101-112) mmol/L Chloride (98-107) mmol/L Carbon Dioxide (21-32) mmol/L POC Total CO2 (24-31) mmol/L Anion Gap (3-11) POC Anion Gap (16-25) mmol/L POC BUN (7-18) mg/dl BUN (6-23) mg/dl Creatinine (0.6-1.2) mg/dl POC Creatinine (0.6-1.3) mg/dl Est Cr Clr Drug Dosing ml/min Est GFR ( Amer) ml/min Est GFR (Non-Af Amer) ml/min BUN/Creatinine Ratio (10-20) Glucose (70-99(Fasting)) mg/dl POC Glucose (other) (70-99) mg/dl Lactate (0.4-2.0) mmol/L Calcium (8.6-10.3) mg/dl POC Ioniz Calcium Chantelle (1.12-1.32) mmol/l Magnesium (1.7-2.4) mg/dl Total Bilirubin (0.2-1.0) mg/dl AST (13-39) U/L ALT (7-52) U/L Alkaline Phosphatase (34-104) U/L Troponin I High Sens (0-14) pg/ml Total Protein (6.0-8.3) gm/dl Albumin (3.4-5.0) gm/dl Globulin (2.5-4.0) gm/dl Albumin/Globulin Ratio (0.9-2) Lipase (11-82) U/L Digoxin 0.5 L (0.8-2.0) ng/ml 05/06/24 05/06/24 05/06/24 Range/Units 13:04 11:27 11:08 WBC 14.58 H (4.8-10.8) K/ul RBC 4.66 (4.20-5.40) M/uL Hgb 13.7 (12.0-16.0) g/dl POC Hgb 13.3 (12.0-16.0) g/dl Hct 43.0 (37.0-47.0) % POC Hct 39 (37-47) % MCV 92.3 (80.0-100.0) fL MCH 29.4 (25.0-34.0) pg MCHC 31.9 L (32.0-36.0) g/dL RDW Std Deviation 43.8 (36.4-46.3) fL RDW Coeff of [place] 12.9 (11.5-14.5) % Plt Count 283 (130-400) K/uL MPV 13.2 H (9.4-12.4) fL Immature Gran % (Auto) 0.5 % Neut % (Auto) 82.3 % Lymph % (Auto) 8.5 % [place] % (Auto) 8.3 % Eos % (Auto) 0.1 % Baso % (Auto) 0.3 % Neut # (Auto) 11.99 H (1.40-6.50) K/uL Lymph # (Auto) 1.24 (1.20-3.40) K/uL [place] # (Auto) 1.21 H (0.11-0.59) K/uL Eos # (Auto) 0.02 (0.00-0.50) K/uL Baso # (Auto) 0.05 (0.00-0.20) K/uL Immature Gran # (Auto) 0.07 (0.01-0.20) K/uL Heparin Anti-Xa, Unfract (0.3-0.7) IU/ml POC Sodium 136 (135-144) mmol/L Sodium 135 L (136-145) mmol/L POC Potassium 4.1 (3.3-5.0) mmol/L Potassium 4.2 (3.5-5.1) mmol/L POC Chloride 102 (101-112) mmol/L Chloride 97 L (98-107) mmol/L Carbon Dioxide 23 (21-32) mmol/L POC Total CO2 23 L (24-31) mmol/L Anion Gap 15 H (3-11) POC Anion Gap 16.0 (16-25) mmol/L POC BUN 36 H (7-18) mg/dl BUN 33 H (6-23) mg/dl Creatinine 1.24 H (0.6-1.2) mg/dl POC Creatinine 1.4 H (0.6-1.3) mg/dl Est Cr Clr Drug Dosing 33.6 ml/min Est GFR ( Amer) 48.2 ml/min Est GFR (Non-Af Amer) 41.6 ml/min BUN/Creatinine Ratio 26.6 H (10-20) Glucose 95 (70-99(Fasting)) mg/dl POC Glucose (other) 97 (70-99) mg/dl Lactate 0.7 (0.4-2.0) mmol/L Calcium 10.2 (8.6-10.3) mg/dl POC Ioniz Calcium Chantelle 1.12 (1.12-1.32) mmol/l Magnesium 1.9 (1.7-2.4) mg/dl Total Bilirubin 1.0 (0.2-1.0) mg/dl AST 13 (13-39) U/L ALT 8 (7-52) U/L Alkaline Phosphatase 73 (34-104) U/L Troponin I High Sens 9.5 (0-14) pg/ml Total Protein 7.8 (6.0-8.3) gm/dl Albumin 4.2 (3.4-5.0) gm/dl Globulin 3.6 (2.5-4.0) gm/dl Albumin/Globulin Ratio 1.2 (0.9-2) Lipase 7 L (11-82) U/L Digoxin (0.8-2.0) ng/ml (1) Diverticulitis of intestine with perforation and abscess Diverticulitis bleeding: unspecified bleeding status Diverticulitis site: large intestine Qualified Code(s): K57.20 - Diverticulitis of large intestine with perforation and abscess without bleeding
[2024-05-07] MEDS: METOPROLOL TARTRATE 1 MG/ML VIAL IV SCH (11:45)
[2024-05-07] MEDS ORDERED: METOPROLOL TARTRATE 1 MG/ML VIAL IV PRN (13:53)
--- NOTE | 2024-05-07 13:54 | Hospitalist Progress Note ---
Date of Service May 07, 2024 Assessment & Plan (1) Diverticulitis of intestine with perforation and abscess: Plan: Acute sigmoid diverticulitis with peritonitis, with microperforation and 2.1 x 1.7 cm abscess, extensive colonic wall thickening, extensive pelvic inflammation with peritoneal enhancement, several partially loculated fluid collections potentially reflective of developing abscess measuring 5.2 x 2.3, 3.2 x 1.2, and 2.9 x 1 cm. No drainable fluid collection is noted due to location. Afebrile, leukocytosis resolved, pain is much improved with bowel rest, IV fluids, and IV antibiotics Appreciate general surgery consultation Advance diet to clear liquids and will now lower IV fluids to 50 mL/h until tolerating adequate amounts of p.o. Continue Zosyn at least for several days and then can convert to oral antibiotics on discharge-will likely need several weeks of antibiotics Will need repeat CT abdomen/pelvis in a few weeks to determine if abscesses are resolving Pain control with Tylenol and morphine as needed Follow CBC, BMP, magnesium in the morning (2) Permanent atrial fibrillation: Plan: Heart rates are uncontrolled in the setting of acute infection, and has been off metoprolol for 2 days due to nausea/vomiting She was recently discontinued off amiodarone as it was ineffective for rhythm control-cardiology recommends rate control and recently added digoxin to her metoprolol Now that she is on clear liquids diet, resume metoprolol tartrate 25 Mg p.o. twice daily, make IV metoprolol as needed heart rate greater than 120 Resume home digoxin 125 mcg p.o. every other day-digoxin level here 0.5 Continue heparin gtt until more apparent that no surgical intervention is needed Holding home Xarelto-of note, she is only on a 10 mg daily dose as she reports bleeding with the therapeutic dose Continue to monitor on telemetry (3) Heart failure with mid-range ejection fraction (HFmEF): Plan: Chronic HFmEF with a history of dilated cardiomyopathy EF 45%, denies anginal symptoms. Is euvolemic Continue with rate control as above, metoprolol tartrate for now for short acting but eventually resume home Toprol-XL Holding home spironolactone and candesartan-HCT Strict I's and O's, daily weights (4) Essential (primary) hypertension: Plan: Holding home candesartan-HCT, spironolactone, and Toprol XL Giving metoprolol tartrate 25 Mg p.o. twice daily Blood pressures are well-controlled Plan DVT prophylaxis: Heparin gtt CODE STATUS: Full code Disposition: Continued stay on PCU Admission and Anticipated Discharge Date Admission Date: May 06, 2024 Subjective Patient feeling much improved today with almost no left lower quadrant pain anymore. Denies chest pains or shortness of breath. No bowel movement since admission. No further nausea and her diet was just advanced to clear liquids by surgery. Telemetry with atrial fibrillation with rates consistently in the 120s to 130s Physical Exam Constitutional: WD/WN, vitals as above Respiratory: normal respiratory effort, lungs clear to auscultation Cardiovascular: Rate/Rhythm: + tachycardic and + irregularly irregular Heart Sounds: no murmur Extremities: no edema Gastrointestinal (Abdomen): normal bowel sounds, soft, nontender, no hepatosplenomegaly Skin: no rashes, warm and dry Psychiatric: A+Ox3, euthymic affect Results & Data Results & Data Vital Signs (Past 12 Hours) Vital Signs Temp Pulse Pulse Resp BP BP Pulse Ox 05/07/24 12:53 124 H 122/82 05/07/24 11:45 118 H 109/70 05/07/24 11:44 36.8 C 127 H 20 109/70 95 05/07/24 08:48 111 H 110/79 05/07/24 08:00 36.9 C 107 H 18 113/69 96 05/07/24 06:50 103 H 05/07/24 06:20 111 H 114/68 05/07/24 06:05 123 H 114/68 05/07/24 04:00 36.9 C 121 H 18 129/71 98 O2 Del Method 05/07/24 12:53 05/07/24 11:45 05/07/24 11:44 Room Air 05/07/24 08:48 05/07/24 08:00 Room Air 05/07/24 06:50 05/07/24 06:20 05/07/24 06:05 05/07/24 04:00 Room Air Laboratory Results CBC, BMP, anti-Xa level, lactate, magnesium level reviewed, blood cultures reviewed PG Care Time/CCT Total # of Minutes Spent Total Time Spent with Patient: Total time spent is greater than 50% in coordination of care (as documented) at patient's floor/unit and/or counseling patient: Coding Level of Care Code 69274 SUB INP/OBS CARE MIN Diagnoses Diverticulitis of intestine with perforation and abscess K57.20 Diverticulitis bleeding: unspecified bleeding status Diverticulitis site: large intestine Permanent atrial fibrillation I48.21 Heart failure with mid-range ejection fraction (HFmEF) I50.22 Essential (primary) hypertension I10 (1) Diverticulitis of intestine with perforation and abscess Diverticulitis bleeding: unspecified bleeding status Diverticulitis site: large intestine Qualified Code(s): K57.20 - Diverticulitis of large intestine with perforation and abscess without bleeding
[2024-05-07] MEDS: DIGOXIN 0.125 MG TAB PO SCH (14:09)
[2024-05-07] MEDS: METOPROLOL TARTRATE 25 MG TAB PO SCH (14:42)
--- NOTE | 2024-05-07 15:19 | Electrocardiogram Report ---
Test Reason : Blood Pressure : */* mmHG Vent. Rate : 127 BPM Atrial Rate : 326 BPM P-R Int : * ms QRS Dur : 90 ms QT Int : 304 ms P-R-T Axes : 252 37 156 degrees QTcB Int : 441 ms Atrial flutter with variable A-V block Low voltage QRS Inferior infarct Abnormal ECG When compared with ECG of 26-Feb-2024 10:51, (unconfirmed) Significant changes have occurred Confirmed by Fred Galvin ([id number]) on 05/07/2024 3:19:01 PM Referred By: REFERRED SELF Confirmed By: Fred Galvin
[2024-05-07] MEDS ORDERED: ACETAMINOPHEN 325 MG TAB PO PRN (16:33)
[2024-05-08 04:23] LABS: Basophils # (auto) 0.02 K/uL (0.00-0.20); Basophils % (auto) 0.4 %; Eosinophils # (auto) 0.09 K/uL (0.00-0.50); Eosinophils % (auto) 1.8 %; Hematocrit (blood only) 34.4 % (37.0-47.0); Hemoglobin 11.1 g/dl (12.0-16.0); Immature Granulocytes # (auto) 0.02 K/uL (0.01-0.20); Immature Granulocytes % (auto) 0.4 %; Lymphocytes # (auto) 1.08 K/uL (1.20-3.40); Lymphocytes % (auto) 21.3 %; Mean Corpuscular Hemoglobin 29.8 pg (25.0-34.0); Mean Corpuscular Hgb Conc 32.3 g/dL (32.0-36.0); Mean Corpuscular Volume 92.5 fL (80.0-100.0); Mean Platelet Volume 12.8 fL (9.4-12.4); Monocytes # (auto) 0.47 K/uL (0.11-0.59); Monocytes % (auto) 9.3 %; Neutrophils % (auto) 66.8 %; Platelet Count 222 K/uL (130-400); RDW Coefficient of Variation 12.8 % (11.5-14.5); RDW Standard Deviation 43.4 fL (36.4-46.3); Red Blood Count 3.72 M/uL (4.20-5.40); White Blood Count 5.08 K/ul (4.8-10.8)
[2024-05-08 04:25] LABS: BUN Creatinine Ratio 14.1 (10-20); Calcium 8.9 mg/dl (8.6-10.3); Creatinine Clr Calc Pharmacy 52.3 ml/min; Est GFR (African American) 69.1 ml/min; Est GFR (Non-African American) 59.6 ml/min
--- NOTE | 2024-05-08 05:43 | Surgery Progress Note ---
Date of Service May 08, 2024 Assessment & Plan (1) Diverticulitis of intestine with perforation and abscess: Plan: Patient has been admitted on the hospital service. From surgery perspective we recommend the following: Labs today show leukocytosis present on admission has resolved Continue analgesics as needed Continue antibiotics in the form of Zosyn; the initial surgical service caring for this patient recommended at least 3 days of IV antibiotics (today will be day #3) Continue diet in the form of clear liquids for the present time Continue IV fluids until certain oral intake will be adequate Of note, blood cultures from 05/06/2024 are thus far negative for growth. Continue mobilization as able Patient is on a heparin drip for atrial fibrillation therefore no further DVT prevention will be required Admission and Anticipated Discharge Date Admission Date: May 06, 2024 Supervising Physician Co-Signing Physician Notes I personally saw and evaluated the patient with Mekhi Juarez PA-C and agree with his assessment and plan. 78-year-old female with diverticulitis, improving She is tolerating her clear liquids and has no abdominal pain or tenderness on exam today Will advance her to full liquids and keep her here for 1 more day of IV antibiotics If she tolerates her full liquids, she can be advanced to a low fiber diet tomorrow and possibly discharged Will follow-up Subjective Patient is resting comfortably in bed. She denies any abdominal pain. She notes that she is tolerating clear liquids without exacerbation of her abdominal pain. She has not had any nausea or vomiting. She is passing flatus. She is a mbulating in the hallway. I discussed with the nurse attending the patient and she verified the above information and did not voice any concerns from gis professor. Physical Exam Gastrointestinal (Abdomen): Abdomen is soft and nondistended. There is no pain with palpation. There is no rebound tenderness or guarding. Results & Data Vital Signs (Past 12 Hours) Vital Signs Temp Pulse Resp BP Pulse Ox O2 Del Method 05/08/24 04:00 36.9 C 109 H 18 143/89 H 99 Room Air PG Care Time/CCT Total # of Minutes Spent Total Time Spent with Patient: Total time spent is greater than 50% in coordination of care (as documented) at patient's floor/unit and/or counseling patient: Coding Level of Care Code 29651 SUB INP/OBS CARE Diagnoses Diverticulitis of intestine with perforation and abscess K57.20 Diverticulitis bleeding: unspecified bleeding status Diverticulitis site: large intestine (1) Diverticulitis of intestine with perforation and abscess Diverticulitis bleeding: unspecified bleeding status Diverticulitis site: large intestine Qualified Code(s): K57.20 - Diverticulitis of large intestine with perforation and abscess without bleeding
[2024-05-08 07:13] LABS: ANTI-Xa, UFH(UnfractionatedHep 0.17 IU/ml (0.3-0.7)
[2024-05-08] MEDS: METOPROLOL TARTRATE 50 MG TAB PO SCH (08:35)
[2024-05-08] MEDS: HEPARIN SOD (PORCINE) 1000 UNIT/ML IV ONE (08:54)
--- NOTE | 2024-05-08 10:49 | Hospitalist Progress Note ---
Date of Service May 08, 2024 Assessment & Plan (1) Diverticulitis of intestine with perforation and abscess: Plan: Acute sigmoid diverticulitis with peritonitis, with microperforation and 2.1 x 1.7 cm abscess, extensive colonic wall thickening, extensive pelvic inflammation with peritoneal enhancement, several partially loculated fluid collections potentially reflective of developing abscess measuring 5.2 x 2.3, 3.2 x 1.2, and 2.9 x 1 cm. No drainable fluid collection is noted due to location. Remains afebrile, leukocytosis resolved, pain is resolved, tolerating clears diet. Continues on IV fluids, and IV antibiotics Appreciate general surgery consultation Advance diet to full liquids and will now discontinue IV fluids Continue Zosyn for one more day and if continues to do well, can advance to low fiber diet and convert to oral antibiotics on discharge-will likely need several weeks of antibiotics Will need repeat CT abdomen/pelvis in a few weeks to determine if abscesses are resolving Pain control with Tylenol and morphine as needed Follow CBC, BMP, magnesium in the morning (2) Permanent atrial fibrillation: Plan: Heart rates uncontrolled initially in the setting of acute infection, and had been off metoprolol for 2 days due to nausea/vomiting prior to admission She was recently discontinued off amiodarone as it was ineffective for rhythm control-cardiology recommends rate control and recently added digoxin to her metoprolol Metoprolol 25mg po bid and digoxin 125mcg po every other day started 05/07 and now rates improved but remain elevated in low 100s Increase metoprolol tartrate to 50 Mg p.o. twice daily, continue IV metoprolol as needed for HR>120 Continue home digoxin 125 mcg p.o. every other day-digoxin level here 0.5 Continue heparin gtt until more apparent that no surgical intervention is needed, but most liekly can convert to po AC tomorrow Holding home Xarelto-of note, she is only on a 10 mg daily dose as she reports bleeding with the therapeutic dose 8 years ago-hematuria I discussed this with her and her primary Plate Grainer, Dr. Schafer, and pt now agreeable to switching to Eliquis 5mg po bid on discharge Continue to monitor on telemetry (3) Heart failure with mid-range ejection fraction (HFmEF): Plan: Chronic HFmEF with a history of dilated cardiomyopathy EF 45%, denies anginal symptoms. Is euvolemic Continue with rate control as above, metoprolol tartrate for now for short acting but eventually resume home Toprol-XL Holding home spironolactone and candesartan-HCT Strict I's and O's, daily weights (4) Essential (primary) hypertension: Plan: Holding home candesartan-HCT, spironolactone, and Toprol XL but is on metoprolol tartrate now up to 50mg po bid Continue holding other home meds, BPs stable Plan DVT prophylaxis: Heparin gtt CODE STATUS: Full code Disposition: Continued stay on PCU, but improving and likely dc to home tomorrow Admission and Anticipated Discharge Date Admission Date: May 06, 2024 Anticipated date of discharge: 05/09/24 Subjective Pt feels great today, has no abd pain, is passing flatus but no BM. Denies nausea. No CP, SOB. We discussed her lower dose of Xarelto at 10mg as an outpt and she reports a h/o hematuria 8 years ago when on the higher dose. She did not have a workup for her hematuria that she recalls except she knows she did not have a UTI. Her doctor put her on the 10mg dose and said to stay on that. Tele with Afib, rates better but remain in low 100s-110s Physical Exam Constitutional: WD/WN, vitals as above Respiratory: normal respiratory effort, lungs clear to auscultation Cardiovascular: Rate/Rhythm: + tachycardic and + irregularly irregular Heart Sounds: no murmur Extremities: no edema Gastrointestinal (Abdomen): normal bowel sounds, soft, nontender, no hepatosplenomegaly Skin: no rashes, warm and dry Psychiatric: A+Ox3, euthymic affect Results & Data Results & Data Vital Signs (Past 12 Hours) Vital Signs Temp Pulse Pulse Resp BP BP Pulse Ox 05/08/24 08:15 36.9 C 114 H 16 146/96 H 97 05/08/24 04:00 36.9 C 109 H 18 143/89 H 99 O2 Del Method 05/08/24 08:15 Room Air 05/08/24 04:00 Room Air Laboratory Results CBC, BMP, magnesium reviewed Anti-Xa reviewed PG Care Time/CCT Total # of Minutes Spent Total Time Spent with Patient: Total time spent is greater than 50% in coordination of care (as documented) at patient's floor/unit and/or counseling patient: Coding Level of Care Code 34595 SUB INP/OBS CARE MIN Diagnoses Diverticulitis of intestine with perforation and abscess K57.20 Diverticulitis bleeding: unspecified bleeding status Diverticulitis site: large intestine Permanent atrial fibrillation I48.21 Heart failure with mid-range ejection fraction (HFmEF) I50.22 Essential (primary) hypertension I10 (1) Diverticulitis of intestine with perforation and abscess Diverticulitis bleeding: unspecified bleeding status Diverticulitis site: large intestine Qualified Code(s): K57.20 - Diverticulitis of large intestine with perforation and abscess without bleeding
[2024-05-08 16:01] LABS: ANTI-Xa, UFH(UnfractionatedHep 0.14 IU/ml (0.3-0.7)
[2024-05-08] MEDS ORDERED: HEPARIN SOD (PORCINE) 1000 UNIT/ML IV ONE (17:06)
[2024-05-08] MEDS: HEPARIN IV BOLUS 2,000 UNITS in SYRINGE 0 ML IV ONE (17:29)
[2024-05-08 23:51] LABS: ANTI-Xa, UFH(UnfractionatedHep 0.22 IU/ml (0.3-0.7)
--- NOTE | 2024-05-09 05:40 | Surgery Progress Note ---
Date of Service May 09, 2024 Assessment & Plan (1) Diverticulitis of intestine with perforation and abscess: Plan: Patient has been admitted on the hospitalist service. From surgery perspective care should continue as follows: Continue analgesics as needed Continue antibiotics in the form of Zosyn; the initial surgical service caring for this patient recommended at least 3 days of IV antibiotics (05/08/2024 was day #3); would recommend continuing intravenous antibiotics while patient is hospitalized with plans to transition to oral antibiotics at time of discharge Continue full liquid diet at the present time. Consideration may be given to advancing to solid food later today if her abdominal exam remains benign Of note, blood cultures from 05/06/2024 remain negative for growth Continue to mobilize as able Check a.m. labs when available Patient is on a heparin drip for atrial fibrillation therefore no further DVT prevention will be required Admission and Anticipated Discharge Date Admission Date: May 06, 2024 Supervising Physician Co-Signing Physician Notes Advance to low fiber diet She can be discharged home on 2 weeks of p.o. antibiotics today if she tolerates her diet She can follow-up with colorectal surgery as an outpatient Surgery will sign off at this time, please call with any questions or concerns Subjective Patient is currently resting comfortably in bed. She denies any abdominal pain. She reports she is passing flatus and even had a small bowel movement last night. She is currently tolerating full liquid diet and has not had any exacerbation of abdominal pain or nausea or vomiting with her diet. Physical Exam Gastrointestinal (Abdomen): Abdomen is soft and nondistended. There is no pain with palpation. There is no rebound tenderness or guarding. Results & Data Vital Signs (Past 12 Hours) Vital Signs Temp Pulse Pulse Resp BP BP Pulse Ox 05/09/24 04:04 36.6 C 100 H 17 141/96 H 96 05/09/24 01:07 124 H 05/09/24 00:10 37.0 C 109 H 17 131/75 95 05/08/24 21:10 108 H O2 Del Method 05/09/24 04:04 Room Air 05/09/24 01:07 05/09/24 00:10 Room Air 05/08/24 21:10 PG Care Time/CCT Total # of Minutes Spent Total Time Spent with Patient: Total time spent is greater than 50% in coordination of care (as documented) at patient's floor/unit and/or counseling patient: Coding Level of Care Code 13128 SUB INP/OBS CARE Diagnoses Diverticulitis of intestine with perforation and abscess K57.20 Diverticulitis bleeding: unspecified bleeding status Diverticulitis site: large intestine (1) Diverticulitis of intestine with perforation and abscess Diverticulitis bleeding: unspecified bleeding status Diverticulitis site: large intestine Qualified Code(s): K57.20 - Diverticulitis of large intestine with perforation and abscess without bleeding
[2024-05-09 06:50] LABS: Basophils # (auto) 0.03 K/uL (0.00-0.20); Basophils % (auto) 0.7 %; Eosinophils # (auto) 0.11 K/uL (0.00-0.50); Eosinophils % (auto) 2.4 %; Hematocrit (blood only) 36.4 % (37.0-47.0); Hemoglobin 11.9 g/dl (12.0-16.0); Immature Granulocytes # (auto) 0.01 K/uL (0.01-0.20); Immature Granulocytes % (auto) 0.2 %; Lymphocytes % (auto) 19.6 %; Mean Corpuscular Hemoglobin 30.1 pg (25.0-34.0); Mean Corpuscular Hgb Conc 32.7 g/dL (32.0-36.0); Mean Corpuscular Volume 91.9 fL (80.0-100.0); Monocytes # (auto) 0.41 K/uL (0.11-0.59); Monocytes % (auto) 8.9 %; Neutrophils # (auto) 3.14 K/uL (1.40-6.50); Neutrophils % (auto) 68.2 %; Platelet Count 224 K/uL (130-400); RDW Coefficient of Variation 12.6 % (11.5-14.5); RDW Standard Deviation 42.5 fL (36.4-46.3); Red Blood Count 3.96 M/uL (4.20-5.40)
[2024-05-09 07:13] LABS: ANTI-Xa, UFH(UnfractionatedHep 0.15 IU/ml (0.3-0.7); Calcium 8.8 mg/dl (8.6-10.3); Magnesium 1.9 mg/dl (1.7-2.4); Potassium 3.6 mmol/L (3.5-5.1)
[2024-05-09 07:18] LABS: BUN Creatinine Ratio 10.6 (10-20); Est GFR (African American) 76.1 ml/min; Est GFR (Non-African American) 65.6 ml/min
[2024-05-09] MEDS: POTASSIUM CHLORIDE CRTAB 20 MEQ TABCR PO STA (09:15)
[2024-05-09] MEDS: MAGNESIUM SULFATE / D5W 1 GM/100 ML BAG IV ONE (09:15)
[2024-05-09] MEDS: HEPARIN SOD (PORCINE) 1000 UNIT/ML IV ONE (09:16)
[2024-05-09 11:21] VITALS: PULSE 100; RESP 16; TEMP 97.9; O2SAT 96
--- NOTE | 2024-05-09 13:16 | Discharge Summary ---
Discharge Summary Date of Service May 09, 2024 Principal Dx & Hospital Course #1 = Principal Diagnosis (1) Diverticulitis of intestine with perforation and abscess: Acute sigmoid diverticulitis with peritonitis, with microperforation and 2.1 x 1.7 cm abscess, extensive colonic wall thickening, extensive pelvic inflammation with peritoneal enhancement, several partially loculated fluid collections potentially reflective of developing abscess measuring 5.2 x 2.3, 3.2 x 1.2, and 2.9 x 1 cm. No drainable fluid collection is noted due to location. Received IV fluids, bowel rest initially, and IV Zosyn x 3 days Remains afebrile, leukocytosis resolved, pain is resolved, moving bowels, and now tolerating advancement to low fiber diet. Appreciate general surgery consultation Discharge to home on 2 more weeks of po Cipro and Flagyl As per my discussion with the Surgeon, would only need repeat CT abdomen/pelvis if not continuing to clinically improve Surgery also recommending referral to Colorectal Surgery as an outpatient-Nurse Navigator will make this referral (2) Permanent atrial fibrillation: Heart rates uncontrolled initially in the setting of acute infection, and had been off metoprolol for 2 days due to nausea/vomiting prior to admission She was recently discontinued off amiodarone as it was ineffective for rhythm control-cardiology recommends rate control and recently added digoxin to her metoprolol Resumed metoprolol and digoxin here, rates improved Continue home digoxin 125 mcg p.o. every other day-digoxin level here 0.5 Received heparin gtt while here in case of need for surgical procedure, but can resume po anticoagulation on discharge At home,she is only on a 10 mg daily dose of Xarelto as she reports bleeding with the therapeutic dose 8 years ago-hematuria I discussed this with her and her primary Physical Laboratory Assistant, Dr. Schafer, and pt now agreeable to switching to Eliquis 5mg po bid on discharge--> she said previously this was quite expensive and her son who works for [employer] has been getting her discounted Xarelto. However, her son thinks he can also obtain discounted Eliquis for her and she will do this In the meantime, continue taking her usual Xarelto, then switch to Eliquis 5mg po bid once available (3) Heart failure with mid-range ejection fraction (HFmEF): Chronic HFmEF with a history of dilated cardiomyopathy EF 45%, denies anginal symptoms. Is euvolemic Continue with rate control with Toprol-XL, digoxin Held home spironolactone and candesartan-HCT here while getting IVFs on bowel rest but can resume now on discharge Has ECHO scheduled for next week and Cardiology appt shortly after that (4) Essential (primary) hypertension: Held home candesartan-HCT, spironolactone but now can resume on discharge BPs mildly elevated off other meds Plan DVT prophylaxis: Heparin gtt CODE STATUS: Full code Disposition: dc to home, discussed care with Surgery on day of discharge Notes For Next Care Provider May need repeat CT abd/pelvis only if not clinically improving Needs referral to Colorectal Surgery as an outpt-[place] Nurse Navigator will make this Medication Changes From Visit Added Cipro 500mg po bid and Flagyl 500mg po tid x 2 weeks Change Xarelto to Eliquis 5mg po bid Admission HPI Per Admitting Provider Mabel Magallon is a 78-year-old female with past medical history of A-fib on anticoagulation, dilated cardiomyopathy, hypertension who presents to the ER with nausea/vomiting/diarrhea and left lower quadrant pain and inability to los erate her oral meds including digoxin. CTA/P shows acute diverticulitis with contained perforation and 2.1 x 1.7 cm abscess. Extensive colonic wall thickening, and several small partially loculated fluid collections consistent with developing abscesses were seen. Progressive abdominal pain since Friday, ~4 days. Mostly in her left lower quadrant. No prior history of diverticulitis. No fevers, chills in the last week. No respiratory symptoms. Due to nausea, vomiting, and stomach discomfort has not taking any medications since Friday. Had recently started on digoxin and stopped as was concerned her sx were a side effect Eliquis twice a day x8 years. No bleeding problems. Last dose was Friday morning Last dose of metorpolol and BP meds also eday. Was previously on amiodarone, was switched to metoprolol in March 17, then had digoxin added later. NO chest pain +1x loose BM overnight normally, had had several episodes of diarrhea last Friday. Liquid and oozing quality which is abnormal for her. No blood/melena. Drinking water, no food in the last 2 days Peeing normally last day or so. No pain Medical History: Reviewed Medications: Reviewed Surgical History: Reviewed Family history: Reviewed Allergies: Reviewed. Childhood penicillin. Social History: No hx tobacco use. Rare social etoh use Code Status: Full Code Discharge Exam Constitutional WD/WN, vitals as above Respiratory normal respiratory effort, lungs clear to auscultation Cardiovascular Rate/Rhythm: regular rate and + irregularly irregular Heart Sounds: no murmur Extremities: no edema Gastrointestinal (Abdomen) normal bowel sounds, soft, nontender, no hepatosplenomegaly Skin no rashes, warm and dry Psychiatric A+Ox3, euthymic affect Discharge Plan Discharge Items Patient Disposition: Home - Self-Care Reason For Visit: DIVERTICULITIS WITH CONTAINED PERF/ABSCESS Discharge Diagnosis: Acute diverticulitis with contained perforation and intra-abdominal abscess Rapid atrial fibrillation Condition on Discharge: Good Activity: Resume your previous activity Non-emergency contact: Primary Care Provider, Surgeon and Physical Laboratory Assistant Call non-emergency contact if: you have any medication questions, your symptoms worsen, your pain is not controlled, your pain is worsening and you have a fever Follow-up/Referrals: Jonn Magdaleno, [Primary Care Provider] - (Follow up within 1-2 weeks- please call for an appointment if you don't hear from Dr. Magdaleno's office.) Diet: Low Fiber Diet Comment: low fiber x 2 weeks then increase fiber in your diet after that Addtl Attending Provider Instructions: Please finish out 2 more weeks of the two antibiotics called Cipro and Flagyl (metronidazole) for your diverticulitis. If you continue to improve, you do not necessarily need repeat imaging with a CT scan of your abdomen/pelvis. If you develop fevers, abdominal pain, nausea, or any other acute concerns, please call your doctor or return to the hospital. The general surgeon here is recommending that you be seen by a Colorectal community specialist. This referral is being made for you and you should be contacted with your appointment date and time. Pending Studies at Discharge: Yes (blood cultures-no growth to date) Stand-Alone Forms: My [facility] Medications and DC Order Prescriptions: New Eliquis 5 mg tablet 5 mg PO BID Qty: 60 0RF ciprofloxacin HCl [Cipro] 500 mg tablet 500 mg PO BID Qty: 28 0RF metronidazole 500 mg tablet 500 mg PO TID Qty: 42 0RF Continued digoxin 125 mcg (0.125 mg) tablet 125 mcg PO Q2D Qty: 45 3RF metoprolol succinate 50 mg tablet extended release 24 hr 100 mg PO DAILY Qty: 90 3RF spironolactone 25 mg tablet 25 mg PO DAILY Qty: 90 3RF candesartan-hydrochlorothiazid 32-12.5 mg tablet 1 tab PO DAILY Xarelto 10 mg tablet 10 mg PO DAILY Qty: 90 2RF Rx Instructions: but STOP once you obtain the Eliquis Discharge Orders: Discharge Order (Routine); Ordered 05/09/24 Ordered By: Nena Padilla Admission Data Admit Date/Time: 05/06/24 14:06 Attending Provider: Nena Padilla Admit Provider: Gualberto Lyles Primary Care Provider: Jonn Magdaleno Other Providers: Gualberto Lyles; Emanuel Page Hospital Stay Data Consultations 05/06/24 13:01 ED Decision to Admit Stat 05/06/24 15:51 Consult General Surgery Routine Diagnostic Imagining Performed 05/06/24 11:04 CT Abd and Pelvis [CT abd pelvis IV con only] Stat Pending Results Patient Have Any Pending Studies at Discharge: Yes (blood cultures-no growth to date) Discharge Instructions Given to Patient (Per Discharging Provider) Please finish out 2 more weeks of the two antibiotics called Cathie and Antolin (metronidazole) for your diverticulitis. If you continue to improve, you do not necessarily need repeat imaging with a CT scan of your abdomen/pelvis. If you develop fevers, abdominal pain, nausea, or any other acute concerns, please call your doctor or return to the hospital. The general surgeon here is recommending that you be seen by a Colorectal community specialist. This referral is being made for you and you should be contacted with your appointment date and time. Total Time Total Time Spent Total Time Spent (In Minutes): 45 min Total Time Includes: Examination of the Patient, Discharge Planning, Medication Reconciliation and Communication With Other Providers Coding Level of Care Code 84565 INP/OBS DISCH >30 MIN Diagnoses Diverticulitis of intestine with perforation and abscess K57.20 Diverticulitis bleeding: unspecified bleeding status Diverticulitis site: large intestine Permanent atrial fibrillation I48.21 Heart failure with mid-range ejection fraction (HFmEF) I50.22 Essential (primary) hypertension I10
[2024-05-09 13:17] VITALS: BP 141/96
== END 2024-05-09 14:27 | disposition home or self-care (01) | DRG 391 ==
LOC: ED 10:42 → 1E 14:06 → SUATTDRO 14:06 → 1E 15:44 → 2E 05-08 20:53